=== PATIENT | female | born 1945 | race Caucasian/White ===

== ENCOUNTER 2017-01-27 05:02 | Day surgery (SDC) | payer MEDICARE, OTHER ==
[~2017-01-27] VITALS: Ht 165.1 cm; Wt 77.1 kg
[~2017-01-27 05:02] MED LIST: MAXALT MLT10 MG/TAB PO
[2017-01-27 06:14] VITALS: BP 116/64; Ht 165.1 cm; Wt 77.1 kg
[2017-01-27 06:51] LABS: BASOPHILS 0.4 % (0-2); EOSINOPHILS 1.9 % (0-7); HEMATOCRIT 43.8 % (36.0-48.0); HEMOGLOBIN 14.5 g/dL (12-16); IMMATURE GRANULOCYTES 0.2 % (0-5); MCH 31.3 pg (26.0-34.0); MCHC 33.1 g/dL (31.0-37.0); MCV 94.6 fL (80.0-100.0); MEAN PLATELET VOLUME 10.4 fL (7.4-10.4); MONOCYTES 11.1 % (2-11); NEUTROPHILS 53.4 % (40-80); PLATELET COUNT 165 10x3/uL (130-400); RBC 4.63 10x6/uL (4.00-5.40); RDW 12.5 % (11.5-14.5); WBC 5.7 10x3/uL (4.8-10.8)
[2017-01-27 07:02] LABS: INR 0.94 (0.85-1.17); PROTIME 12.4 SECONDS (11.6-15.0)
[2017-01-27 07:03] LABS: APTT 25.9 SECONDS (22.8-39.4)
--- NOTE | 2017-01-28 11:12 | OP ---
PATIENT NAME: DEVIN FALCON MEDICAL RECORD: [id number] :47 LOCATION:[facility] ADMISSION DATE: SURGEON: UMER DAVIS MD DATE OF OPERATION: 01/27/2017 SURGEON: Umer Davis MD. ANESTHESIA: General anesthesia by Dr. Eb Hutson. PREOPERATIVE DIAGNOSES: Interstitial cystitis and urethral stricture. PROCEDURES: Cystoscopy, urethral dilation to 30-Belarusian, intravesical Rimso 50 mL times 50%. FINDINGS: Diffuse bladder inflammation, single ureteral orifice. No bladder tumors. Urethral stricture. CLINICAL HISTORY: This is a 71-year-old female, who complains of severe vaginal pain as well as urinary frequency. Urine cultures have been negative. She has tenderness in the labia minora of the vagina and the suprapubic region, as well as the posterior fourchette. This is on physical examination. There is a quite significant amount of tenderness in the trigonal region of the bladder also on vaginal examination. She also feels that she is not ever completely emptying her bladder. She comes now to have cystoscopy for diagnosis of interstitial cystitis, urethral dilation and intravesical Rimso instillation. She had a note on her chart that says she was ALLERGIC TO PENICILLIN AND SULFA; however, when she was questioned carefully, she said that she is not allergic to penicillin. We gave her Ancef [address] Hutson gave her a test dose first to make sure that she would have no reaction prior to giving the rest of the medication. DESCRIPTION OF PROCEDURE: The patient was given induction of general anesthesia. This is at the patient's request. She was then placed in the dorsal lithotomy position and prepped and draped. A 17-Belarusian cystoscope with 30-degree lens was used for visualization. Findings are as noted above. The bladder was then emptied through the cystoscope and the scope was removed. We used urethral sounds up to 30-Belarusian to dilate the urethra. We then inserted a 16-Belarusian red rubber catheter. A 50 mL of the solution was then instilled into the bladder through the catheter and the catheter was removed, leaving the medication in the bladder. The patient will hold the medication in for about 15 minutes and then void it out. I will see her next week for her second treatment with Rimso. TRANSINT:[id number] Voice Confirmation ID: [id number] DOCUMENT ID: [id number] UMER DAVIS MD at 1112 CC: [id number] DICTATION DATE: 01/27/17 0808 MONOTYPE MACHINIST: 01/27/[address] [facility] 01/27/17 [id number] [place] [id number]
== END 2017-01-27 09:20 | disposition home or self-care (01) ==
LOC: D.OPS 05:02 → D.PAN 07:30 → D.OPS 09:20
PROVIDERS: Anesthesiology
DX: N30.10 Interstitial cystitis (chronic) without hematuria (principal); N35.9 Urethral stricture, unspecified; Z88.2 Allergy status to sulfonamides; Z01.812 Encounter for preprocedural laboratory examination

== ENCOUNTER → 2017-11-14 07:20 | Outpatient (CLI) | payer MEDICARE, OTHER ==
[2017-01-27 06:14] VITALS: BMI 28.3
[2017-11-14 07:56] LABS: ALBUMIN 3.7 g/dL (3.4-5.0); BILIRUBIN - DIRECT 0.13 mg/dL (0.00-0.30); BILIRUBIN - INDIRECT 0.47 mg/dL (0.00-1.00); BILIRUBIN - TOTAL 0.6 mg/dL (0.2-1.3); PROTEIN - SERUM 7.4 g/dL (6.4-8.2)
== END | disposition home or self-care (01) ==
LOC: D.LAB 07:20 → D.US 08:00 → D.NM 09:30
PROVIDERS: Internal Medicine Gastroenterology
DX: R10.9 Unspecified abdominal pain (principal); R11.0 Nausea

== ENCOUNTER → 2017-11-21 08:06 | Outpatient (CLI) | payer MEDICARE, OTHER ==
[2017-01-27 06:14] VITALS: BMI 28.3
== END | disposition home or self-care (01) ==
LOC: D.MRI 08:06
DX: R93.5 Abnormal findings on diagnostic imaging of other abdominal regions, including retroperitoneum (principal); R11.2 Nausea with vomiting, unspecified; R10.9 Unspecified abdominal pain

== ENCOUNTER → 2017-12-04 08:01 | Outpatient (CLI) | payer MEDICARE, OTHER ==
[2017-01-27 06:14] VITALS: BMI 28.3
== END | disposition home or self-care (01) ==
LOC: D.RAD 08:01
DX: K21.9 Gastro-esophageal reflux disease without esophagitis (principal)